=== PATIENT | male | born 1955 | race Caucasian/White ===

== ENCOUNTER → 2016-11-17 | Outpatient (CLI) | payer BC, OTHER ==
[~2016-11-17] MED LIST: /ADVA50050; /WARF5TA; ALBU83IN; CLAR5CHW; COZA25TA8; COZA50TA18; HYDR25TA6; LIPI20TA; NASONEX; PERC5TAB8; PREG50CA; SING10TA31
--- NOTE | 2016-11-17 14:47 | REP ---
MRI RIGHT ANKLE: TECHNIQUE: Sagittal proton density, STIR, axial proton density fat sat, T1, coronal proton density, STIR. The Achilles, anterior tibial, posterior tibial, flexor hallucis longus, flexor digitorum longus and peroneal tendons all appear intact. There is mild fluid surrounding the flexor hallucis longus tendon just above and just below the level of the tibiotalar joints, which may represent mild tenosynovitis. The anterior and posterior talofibular, calcaneal fibular, and deltoid ligaments appear intact. The plantar tendon is intact. Otherwise, a normal amount of joint fluid is seen. 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 Minimal edema is seen in the distal fibula. IMPRESSION: There appears to be mild tenosynovitis of flexor hallucis longus tendon. No other evidence of tendon or ligament tear. 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 Signed by Robert Gomez MD 11/17/2016 05:04 P
--- NOTE | 2016-11-17 15:06 | REP ---
MRI RIGHT FOOT: TECHNIQUE: Multiple sequences obtained in the axial, coronal and sagittal planes. There is diffuse moderate chondromalacia at the tibiotalar joint with subchondral marrow edema and cystic change on both sides of the joint. Mild diffuse arthritic changes are seen at the intertarsal joints with some small areas of subchondral marrow edema in the tarsal bones. There is no stress fracture. No plantar fasciitis is noted, plantar tendon is intact. No ganglion cyst is seen. No joint effusions are seen. No other soft tissue abnormality is seen. There is no evidence of tenosynovitis distally although there is mild fluid surrounding the flexor halluces longus tendon proximally. IMPRESSION: Moderate arthritic changes tibiotalar joint. Mild arthritic changes intertarsal joints. Mild tenosynovitis of the proximal flexor hallucis longus tendon with no other significant abnormality. Signed by Robert Gomez MD 11/17/2016 05:05 P
== END ==
LOC: M PLARAD 12:40
PROVIDERS: ATTEND Orthopaedic Surgery
DX: M19.071 Primary osteoarthritis, right ankle and foot (principal)